=== PATIENT | female | born 1975 | race Caucasian/White ===

== ENCOUNTER 2017-03-11 18:00 | Inpatient (IN) | payer MEDICARE, MEDICAID ==
[~2017-03-11] VITALS: Ht 165.1 cm; Wt 86.9 kg
[2017-03-11 19:27] VITALS: BP 154/99
[2017-03-11 20:28] VITALS: BP 154/99
[2017-03-12 00:30] VITALS: BP 142/90
[2017-03-12] MEDS: LORazepam 2 MG TABLET PO PRN ×4 (00:38→15:55)
[2017-03-12] MEDS: ZOLPIDEM TARTRATE 10 MG TABLET PO PRN (00:38)
[2017-03-12 07:12] LABS: BASOPHILS % (AUTO) 0.8 % (0.0-2.0); EOSINOPHILS # (AUTO) 0.33 K/uL (0.00-0.70); HEMATOCRIT 43.2 % (36-46); HEMOGLOBIN 14.2 g/dL (12.0-16.0); LYMPHOCYTES # (AUTO) 1.7 K/uL (1.0-4.8); LYMPHOCYTES % (AUTO) 13.1 % (22.0-44.0); MEAN CORPUSCULAR HEMOGLOBIN 29.2 pg (26.0-34.0); MEAN CORPUSCULAR HGB CONC 32.8 G/dL (31.0-37.0); MEAN CORPUSCULAR VOLUME 89 fL (80-100); MONOCYTES # (AUTO) 0.9 K/uL (0.1-1.0); MONOCYTES % (AUTO) 7.1 % (2.0-9.0); NEUTROPHILS # (AUTO) 10.1 K/uL (1.8-7.7); NEUTROPHILS % (AUTO) 76.6 % (40.0-70.0); PLATELET COUNT (AUTO) 324 K/uL (150-450); RED BLOOD CELL COUNT(AUTO) 4.86 MIL/uL (4.00-5.20); RED CELL DISTRIBUTION WIDTH 14.4 % (11.5-14.5)
[2017-03-12 07:32] LABS: HEMOGLOBIN A1C 5.7 % (4.5-6.2)
[2017-03-12 07:44] LABS: ALANINE AMINOTRANSFERASE 15 U/L (12-78); ALKALINE PHOSPHATASE 66 U/L (46-116); ANION GAP 6 mmol/L (8-16); ASPARTATE AMINOTRANSFERASE 15 U/L (15-37); BILIRUBIN,TOTAL 0.2 mg/dL (0.1-1.0); CALCIUM, TOTAL 8.6 mg/dL (8.8-10.5); CARBON DIOXIDE 28 mmol/L (22-29); CHLORIDE 103 mmol/L (98-107); CHOL/HDL RATIO 2.9 (3.9-5.7); CHOLESTEROL 172 mg/dL (131-200); CREATININE 0.82 mg/dL (0.60-1.30); GLOMERULAR FILTR. RATE CALC > 60 mL/min (>60); GLUCOSE,RANDOM 97 mg/dL (70-110); HCG,QUANTITATIVE < 1 mIU/mL (0-6); HDL CHOLESTEROL 59 mg/dL (40-60); LDL CHOL (CALC.) 95 mg/dL (0-130); POTASSIUM 4.7 mmol/L (3.5-5.1); SODIUM SERUM 137 mmol/L (136-145); TOTAL PROTEIN, SERUM 6.5 g/dL (6.4-8.2); TRIGLYCERIDES 90 mg/dL (15-150); UREA NITROGEN, BLOOD 16 mg/dL (7-18)
[2017-03-12 08:15] VITALS: BP 148/90
[2017-03-12] MEDS: PROPRANOLOL HCL 10 MG TABLET PO SCH (08:22)
[2017-03-12] MEDS: NICOTINE 21 MG/24 HOUR PATCH TD SCH (08:22)
[2017-03-12] MEDS ORDERED: ACETAMINOPHEN 325 MG TABLET PO PRN (12:45)
[2017-03-12] MEDS: SERTRALINE HCL 50 MG TABLET PO SCH (14:37)
[2017-03-12] MEDS: ARIPiprazole 10 MG TABLET PO SCH (14:37)
[2017-03-12 17:00] VITALS: BP 160/100
[2017-03-13] MEDS: ZOLPIDEM TARTRATE 10 MG TABLET PO PRN (01:52)
[2017-03-13] MEDS: LORazepam 2 MG TABLET PO PRN ×3 (01:52→16:24)
[2017-03-13 04:29] VITALS: BP 149/111
[2017-03-13 07:55] LABS: BASOPHILS % (AUTO) 0.5 % (0.0-2.0); EOSINOPHILS % (AUTO) 2.7 % (1.0-6.0); HEMATOCRIT 44.1 % (36-46); HEMOGLOBIN 14.7 g/dL (12.0-16.0); LYMPHOCYTES # (AUTO) 1.6 K/uL (1.0-4.8); MEAN CORPUSCULAR HEMOGLOBIN 29.2 pg (26.0-34.0); MEAN CORPUSCULAR HGB CONC 33.3 G/dL (31.0-37.0); MEAN CORPUSCULAR VOLUME 88 fL (80-100); MONOCYTES # (AUTO) 0.7 K/uL (0.1-1.0); MONOCYTES % (AUTO) 6.1 % (2.0-9.0); NEUTROPHILS # (AUTO) 8.8 K/uL (1.8-7.7); NEUTROPHILS % (AUTO) 76.7 % (40.0-70.0); PLATELET COUNT (AUTO) 361 K/uL (150-450); RED BLOOD CELL COUNT(AUTO) 5.02 MIL/uL (4.00-5.20); RED CELL DISTRIBUTION WIDTH 14.7 % (11.5-14.5)
[2017-03-13 08:00] VITALS: BP 124/70
[2017-03-13 08:12] LABS: HEMOGLOBIN A1C 5.8 % (4.5-6.2)
[2017-03-13 08:27] LABS: CHOL/HDL RATIO 3.2 (3.9-5.7); THYROID STIMULATING HORMONE 1.64 uIU/mL (0.36-3.74)
[2017-03-13] MEDS: ARIPiprazole 10 MG TABLET PO SCH (08:38)
[2017-03-13] MEDS: SERTRALINE HCL 50 MG TABLET PO SCH (08:39)
[2017-03-13] MEDS: PROPRANOLOL HCL 10 MG TABLET PO SCH (08:39)
[2017-03-13] MEDS: NICOTINE 21 MG/24 HOUR PATCH TD SCH (08:45)
[2017-03-13] MEDS: HALOPERIDOL 5 MG TABLET PO PRN ×2 (11:02→16:24)
[2017-03-13 11:43] LABS: GLUCOMETER DEV NAME(LOC) 3EI B; GLUCOSE,POINT OF CARE 99 MG/DL (70-110)
[2017-03-13 17:01] VITALS: BP 148/99
[2017-03-14] MEDS: ZOLPIDEM TARTRATE 10 MG TABLET PO PRN ×2 (01:19→21:09)
[2017-03-14 01:24] VITALS: BP 125/97
[2017-03-14] MEDS: HALOPERIDOL 5 MG TABLET PO PRN (04:03)
[2017-03-14] MEDS: ARIPiprazole 10 MG TABLET PO SCH (08:27)
[2017-03-14] MEDS: PROPRANOLOL HCL 10 MG TABLET PO SCH (08:27)
[2017-03-14] MEDS: SERTRALINE HCL 50 MG TABLET PO SCH (08:27)
[2017-03-14] MEDS: LORazepam 2 MG TABLET PO PRN ×2 (08:27→16:08)
[2017-03-14 08:30] VITALS: BP 106/64
[2017-03-14] MEDS: NICOTINE 21 MG/24 HOUR PATCH TD SCH (08:30)
[2017-03-14 15:09] LABS: GLUCOMETER DEV NAME(LOC) 3EX 1; GLUCOSE,POINT OF CARE 95 MG/DL (70-110)
[2017-03-14 22:44] VITALS: BP 123/80
[2017-03-15] MEDS: LORazepam 2 MG TABLET PO PRN ×3 (02:20→14:44)
[2017-03-15] MEDS: HALOPERIDOL 5 MG TABLET PO PRN (02:20)
[2017-03-15 02:23] VITALS: BP 131/100
[2017-03-15] MEDS: NICOTINE 21 MG/24 HOUR PATCH TD SCH (08:41)
[2017-03-15] MEDS: PROPRANOLOL HCL 10 MG TABLET PO SCH (08:41)
[2017-03-15] MEDS: SERTRALINE HCL 50 MG TABLET PO SCH (08:41)
[2017-03-15] MEDS: ARIPiprazole 10 MG TABLET PO SCH (08:42)
[2017-03-15 08:55] VITALS: BP 143/78
[2017-03-15 17:00] VITALS: BP 133/72
[2017-03-15 20:54] VITALS: BP 131/87
[2017-03-15] MEDS: IBUPROFEN 400 MG TABLET PO PRN (20:54)
[2017-03-15] MEDS: ZOLPIDEM TARTRATE 10 MG TABLET PO PRN (20:56)
[2017-03-16 04:39] VITALS: BP 120/98
[2017-03-16 06:48] VITALS: BP 146/96
[2017-03-16] MEDS: LORazepam 2 MG TABLET PO PRN ×2 (06:48→13:03)
[2017-03-16 08:40] VITALS: BP 149/95
[2017-03-16] MEDS: PROPRANOLOL HCL 10 MG TABLET PO SCH (09:10)
[2017-03-16] MEDS: ARIPiprazole 10 MG TABLET PO SCH (09:11)
[2017-03-16] MEDS: NICOTINE 21 MG/24 HOUR PATCH TD SCH (09:12)
[2017-03-16] MEDS: SERTRALINE HCL 50 MG TABLET PO SCH (09:12)
[2017-03-16 16:20] VITALS: BP 129/81
[2017-03-16] MEDS: HALOPERIDOL 5 MG TABLET PO PRN (16:23)
[2017-03-16] MEDS: IBUPROFEN 400 MG TABLET PO PRN (16:25)
[2017-03-16 17:20] VITALS: BP 124/77
[2017-03-17 04:35] VITALS: BP 126/96
[2017-03-17] MEDS: LORazepam 2 MG TABLET PO PRN ×2 (05:21→12:41)
[2017-03-17 08:15] VITALS: BP 136/88
[2017-03-17] MEDS: ARIPiprazole 10 MG TABLET PO SCH (08:37)
[2017-03-17] MEDS: SERTRALINE HCL 50 MG TABLET PO SCH (08:38)
[2017-03-17] MEDS: PROPRANOLOL HCL 10 MG TABLET PO SCH (08:38)
[2017-03-17] MEDS: NICOTINE 21 MG/24 HOUR PATCH TD SCH (08:39)
[2017-03-17] MEDS ORDERED: ARIP10TA8 PO (11:31)
[2017-03-17] MEDS ORDERED: SERT50TA12 PO (11:31)
[2017-03-17] MEDS ORDERED: PROP10TA73 PO (11:32)
[2017-03-17] MEDS: HALOPERIDOL 5 MG TABLET PO PRN (12:41)
== END 2017-03-17 16:00 | disposition home or self-care (01) | DRG 885 ==
LOC: 3EX 18:00
DX: F31.63 Bipolar disorder, current episode mixed, severe, without psychotic features (principal); R45.851 Suicidal ideations; E11.9 Type 2 diabetes mellitus without complications; B19.20 Unspecified viral hepatitis C without hepatic coma; D72.829 Elevated white blood cell count, unspecified; F10.10 Alcohol abuse, uncomplicated; F17.200 Nicotine dependence, unspecified, uncomplicated; I10 Essential (primary) hypertension; M79.7 Fibromyalgia; Z91.5 Personal history of self-harm; Z71.41 Alcohol abuse counseling and surveillance of alcoholic; Z71.6 Tobacco abuse counseling; F15.90 Other stimulant use, unspecified, uncomplicated; F19.10 Other psychoactive substance abuse, uncomplicated
CPT/HCPCS: 82962; 83036; 84443; 87081

== ENCOUNTER 2017-04-22 16:23 | Inpatient (IN) | payer MEDICARE, MEDICAID ==
[~2017-04-22] VITALS: Ht 160 cm; Wt 90.4 kg
[~2017-04-22 16:23] MED LIST: ARIP10TA8 PO; PROP10TA73 PO; SERT50TA12 PO
[2017-04-22 18:18] VITALS: BP 137/87
[2017-04-22] MEDS ORDERED: LORazepam 2 MG TABLET PO PRN (18:45)
[2017-04-22] MEDS ORDERED: OLANZapine 5 MG RAPDIS TABLET PO PRN (18:45)
[2017-04-22] MEDS ORDERED: INFLUENZA VIRUS VACCINE QVS 2017-18 (3YR+)/PF 60 MCG/0.5 ML SYRINGE IM ONE (19:30)
[2017-04-22] MEDS ORDERED: PNEUMOCOCCAL VACCINE POLYVALENT 0.5 ML VIAL [PPSV23] IM ONE (19:30)
[2017-04-22] MEDS ORDERED: ACETAMINOPHEN 325 MG TABLET PO PRN (20:30)
[2017-04-22] MEDS ORDERED: OLANZapine 7.5 MG TABLET PO SCH (21:00)
[2017-04-22] MEDS: TOPIRAMATE 25 MG TABLET PO SCH (21:42)
[2017-04-22] MEDS: GABAPENTIN 300 MG CAPSULE PO SCH (21:42)
[2017-04-22 23:42] LABS: GLUCOMETER DEV NAME(LOC) BV2N3; GLUCOSE,POINT OF CARE 143 MG/DL (70-110)
[2017-04-23 06:33] VITALS: BP 125/94
[2017-04-23 08:24] VITALS: BP 110/70
[2017-04-23 08:26] LABS: HEMOGLOBIN A1C 5.1 % (4.5-6.2)
[2017-04-23] MEDS: GABAPENTIN 300 MG CAPSULE PO SCH ×3 (08:27→16:34)
[2017-04-23] MEDS: TOPIRAMATE 25 MG TABLET PO SCH ×3 (08:27→16:34)
[2017-04-23 08:30] LABS: BASOPHILS % (AUTO) 0.8 % (0.0-2.0); EOSINOPHILS % (AUTO) 7.3 % (1.0-6.0); HEMATOCRIT 43.7 % (36-46); HEMOGLOBIN 14.9 g/dL (12.0-16.0); LYMPHOCYTES # (AUTO) 2.2 K/uL (1.0-4.8); LYMPHOCYTES % (AUTO) 18.6 % (22.0-44.0); MEAN CORPUSCULAR HEMOGLOBIN 28.9 pg (26.0-34.0); MEAN CORPUSCULAR VOLUME 85 fL (80-100); MONOCYTES # (AUTO) 0.8 K/uL (0.1-1.0); MONOCYTES % (AUTO) 7.1 % (2.0-9.0); NEUTROPHILS # (AUTO) 7.9 K/uL (1.8-7.7); NEUTROPHILS % (AUTO) 66.2 % (40.0-70.0); PLATELET COUNT (AUTO) 330 K/uL (150-450); RED BLOOD CELL COUNT(AUTO) 5.15 MIL/uL (4.00-5.20); RED CELL DISTRIBUTION WIDTH 14.2 % (11.5-14.5)
[2017-04-23] MEDS ORDERED: SERTRALINE HCL 50 MG TABLET PO SCH (09:00)
[2017-04-23] MEDS ORDERED: PROPRANOLOL HCL 10 MG TABLET PO SCH (09:00)
[2017-04-23 09:31] LABS: ALANINE AMINOTRANSFERASE 23 U/L (12-78); ALBUMIN 3.2 g/dL (3.4-5.0); ALKALINE PHOSPHATASE 64 U/L (46-116); ANION GAP 4 mmol/L (8-16); ASPARTATE AMINOTRANSFERASE 15 U/L (15-37); BILIRUBIN,TOTAL 0.2 mg/dL (0.1-1.0); CARBON DIOXIDE 32 mmol/L (22-29); CHLORIDE 105 mmol/L (98-107); CHOL/HDL RATIO 3.6 (3.9-5.7); CHOLESTEROL 199 mg/dL (131-200); CREATININE 0.78 mg/dL (0.60-1.30); FREE T4 (FREE THYROXINE) 0.95 ng/dL (0.76-1.46); GLOMERULAR FILTR. RATE CALC > 60 mL/min (>60); GLUCOSE,RANDOM 94 mg/dL (70-110); HCG,QUANTITATIVE < 1 mIU/mL (0-6); HDL CHOLESTEROL 55 mg/dL (40-60); LDL CHOL (CALC.) 128 mg/dL (0-130); SODIUM SERUM 141 mmol/L (136-145); THYROID STIMULATING HORMONE 1.83 uIU/mL (0.36-3.74); TOTAL PROTEIN, SERUM 6.6 g/dL (6.4-8.2); TRIGLYCERIDES 79 mg/dL (15-150); UREA NITROGEN, BLOOD 19 mg/dL (7-18)
[2017-04-23 10:13] VITALS: BP 118/74
[2017-04-23] MEDS: IBUPROFEN 400 MG TABLET PO PRN (10:13)
[2017-04-23] MEDS: NICOTINE POLACRILEX 2 MG LOZENGE PO PRN ×2 (13:57→16:12)
[2017-04-23] MEDS ORDERED: MAGNESIUM HYDROXIDE SUSPENSION 30 ML UDCUP PO PRN (16:45)
[2017-04-23] MEDS ORDERED: GuaiFENesin/D-METHORPHAN [SUGAR-FREE] 200-20MG/10 ML SYRUP UDCUP PO PRN (16:45)
[2017-04-23] MEDS ORDERED: HydrOXYzine PAMOATE 50 MG CAPSULE PO PRN (16:45)
[2017-04-23] MEDS ORDERED: ACETAMINOPHEN 325 MG TABLET PO PRN ×2 (16:45→20:30)
[2017-04-23] MEDS ORDERED: MAG HYDROX/AL HYDROX/SIMETH ES 30 ML SUSPENSION UDCUP PO PRN (16:45)
[2017-04-23] MEDS ORDERED: LOPERAMIDE HCL 2 MG CAPSULE PO PRN (16:45)
[2017-04-23] MEDS ORDERED: PROMETHAZINE HCL 25 MG TABLET PO PRN (16:45)
[2017-04-23] MEDS ORDERED: TUBERCULIN, PURIFIED PROTEIN DERIVATIVE 5 TU/0.1 ML SYG ID ONE (16:45)
[2017-04-23] MEDS ORDERED: GABAPENTIN 400 MG CAPSULE PO SCH (17:00)
[2017-04-23] MEDS ORDERED: RisperiDONE 1 MG TABLET PO PRN (17:00)
[2017-04-23] MEDS ORDERED: RisperiDONE MICROSPHERES 50 MG/2 ML SYRINGE IM ONE (17:00)
[2017-04-23 17:33] VITALS: BP 122/84
[2017-04-23] MEDS: THIAMINE HCL 100 MG TABLET PO SCH (17:55)
[2017-04-23] MEDS ORDERED: IBUPROFEN 400 MG TABLET PO PRN (20:30)
[2017-04-23] MEDS: DIVALPROEX SODIUM 500 MG ER TABLET PO SCH (20:53)
[2017-04-23] MEDS ORDERED: RisperiDONE 3 MG TABLET PO SCH (21:00)
[2017-04-23] MEDS: ZOLPIDEM TARTRATE 10 MG TABLET PO PRN (21:28)
[2017-04-23] MEDS: GABAPENTIN 400 MG CAPSULE PO SCH (21:31)
[2017-04-24 00:07] VITALS: BP 124/91
[2017-04-24] MEDS: ClonazePAM 1 MG TABLET PO PRN ×3 (00:10→16:15)
[2017-04-24] MEDS: IBUPROFEN 400 MG TABLET PO PRN (00:13)
[2017-04-24] MEDS: NICOTINE POLACRILEX 2 MG LOZENGE PO PRN ×3 (06:30→16:00)
[2017-04-24 08:08] VITALS: BP 122/79
[2017-04-24] MEDS: NALTREXONE HCL 50 MG TABLET PO SCH (09:23)
[2017-04-24] MEDS: MULTIVITAMINS WITH MINERALS, THERAPEUTIC TABLET PO SCH (09:23)
[2017-04-24] MEDS: THIAMINE HCL 100 MG TABLET PO SCH ×2 (09:23→16:15)
[2017-04-24] MEDS: FOLIC ACID 1 MG TABLET PO SCH (09:23)
[2017-04-24] MEDS: GABAPENTIN 400 MG CAPSULE PO SCH ×4 (09:23→20:25)
[2017-04-24] MEDS ORDERED: RISP3 PO (15:20)
[2017-04-24] MEDS ORDERED: DIVA500T52 PO (15:20)
[2017-04-24] MEDS ORDERED: NALT50TA PO (15:20)
[2017-04-24] MEDS ORDERED: GABA-533 PO (15:20)
[2017-04-24] MEDS ORDERED: RISPC50 IM (15:20)
[2017-04-24 16:26] VITALS: BP 122/86
[2017-04-24] MEDS: DIVALPROEX SODIUM 500 MG ER TABLET PO SCH (20:25)
[2017-04-24] MEDS ORDERED: RisperiDONE 3 MG TABLET PO SCH (21:00)
[2017-04-24] MEDS: ZOLPIDEM TARTRATE 10 MG TABLET PO PRN (21:53)
[2017-04-25 03:29] VITALS: BP 128/81
[2017-04-25] MEDS ORDERED: DIVA500T35 PO (07:49)
[2017-04-25] MEDS ORDERED: NALT50TA6 PO (07:49)
[2017-04-25] MEDS ORDERED: RISP3 PO (07:49)
[2017-04-25] MEDS ORDERED: GABA-533 PO (07:49)
[2017-04-25] MEDS: GABAPENTIN 400 MG CAPSULE PO SCH ×2 (08:23→12:48)
[2017-04-25] MEDS: THIAMINE HCL 100 MG TABLET PO SCH (08:23)
[2017-04-25] MEDS: NALTREXONE HCL 50 MG TABLET PO SCH (08:23)
[2017-04-25] MEDS: FOLIC ACID 1 MG TABLET PO SCH (08:23)
[2017-04-25] MEDS: MULTIVITAMINS WITH MINERALS, THERAPEUTIC TABLET PO SCH (08:24)
[2017-04-25] MEDS: ClonazePAM 1 MG TABLET PO PRN (08:28)
[2017-04-25 09:19] VITALS: BP 145/90
[2017-05-07] MEDS ORDERED: RisperiDONE MICROSPHERES 50 MG/2 ML SYRINGE IM SCH (09:00)
== END 2017-04-25 13:25 | disposition home or self-care (01) | DRG 885 ==
LOC: B2S 18:47
PROVIDERS: ADMIT Psychiatry & Neurology Psychiatry; ATTEND Psychiatry & Neurology Psychiatry
DX: F25.9 Schizoaffective disorder, unspecified (principal); G62.9 Polyneuropathy, unspecified; B19.20 Unspecified viral hepatitis C without hepatic coma; D72.829 Elevated white blood cell count, unspecified; F10.10 Alcohol abuse, uncomplicated; F17.200 Nicotine dependence, unspecified, uncomplicated; H66.90 Otitis media, unspecified, unspecified ear; I10 Essential (primary) hypertension; M79.7 Fibromyalgia; Z62.810 Personal history of physical and sexual abuse in childhood; F19.10 Other psychoactive substance abuse, uncomplicated; Z71.41 Alcohol abuse counseling and surveillance of alcoholic; Z59.0 Homelessness; Z91.19 Patient's noncompliance with other medical treatment and regimen; Z71.51 Drug abuse counseling and surveillance of drug abuser; Z81.8 Family history of other mental and behavioral disorders
CPT/HCPCS: 82962; 83036; 84439; 84443; J2794

== ENCOUNTER 2017-04-30 11:00 | Emergency (ER) | payer MEDICARE, MEDICAID ==
[~2017-04-30] VITALS: Ht 167.6 cm; Wt 100.0 kg
[~2017-04-30 11:00] MED LIST changes: -ARIP10TA8 PO; +DIVA500T35 PO; +DIVA500T52 PO; +GABA-533 PO; +NALT50TA PO; +NALT50TA6 PO; -PROP10TA73 PO; +RISP3 PO; +RISPC50 IM; -SERT50TA12 PO
[2017-04-30 11:34] VITALS: BP 132/85
[2017-04-30 11:45] LABS: BASOPHILS % (AUTO) 0.8 % (0.0-2.0); EOSINOPHILS % (AUTO) 2.4 % (1.0-6.0); HEMATOCRIT 42.5 % (36-46); HEMOGLOBIN 14.1 g/dL (12.0-16.0); LYMPHOCYTES # (AUTO) 2.1 K/uL (1.0-4.8); LYMPHOCYTES % (AUTO) 15.1 % (22.0-44.0); MEAN CORPUSCULAR HGB CONC 33.1 G/dL (31.0-37.0); MEAN CORPUSCULAR VOLUME 85 fL (80-100); MONOCYTES # (AUTO) 1.2 K/uL (0.1-1.0); MONOCYTES % (AUTO) 9.1 % (2.0-9.0); NEUTROPHILS % (AUTO) 72.6 % (40.0-70.0); PLATELET COUNT (AUTO) 408 K/uL (150-450); RED BLOOD CELL COUNT(AUTO) 5.03 MIL/uL (4.00-5.20); RED CELL DISTRIBUTION WIDTH 14.1 % (11.5-14.5)
[2017-04-30 11:53] LABS: ANION GAP 11 mmol/L (8-16); CALCIUM, TOTAL 8.6 mg/dL (8.8-10.5); CARBON DIOXIDE 27 mmol/L (22-29); CHLORIDE 101 mmol/L (98-107); GLOMERULAR FILTR. RATE CALC > 60 mL/min (>60); GLUCOSE,RANDOM 85 mg/dL (70-110); POTASSIUM 3.5 mmol/L (3.5-5.1); SODIUM SERUM 139 mmol/L (136-145); UREA NITROGEN, BLOOD 13 mg/dL (7-18)
[2017-04-30 12:08] LABS: ALANINE AMINOTRANSFERASE 29 U/L (12-78); ALBUMIN 3.7 g/dL (3.4-5.0); ALKALINE PHOSPHATASE 70 U/L (46-116); ASPARTATE AMINOTRANSFERASE 21 U/L (15-37); BILIRUBIN,TOTAL 0.4 mg/dL (0.1-1.0); THYROID STIMULATING HORMONE 2.06 uIU/mL (0.36-3.74); TOTAL PROTEIN, SERUM 7.8 g/dL (6.4-8.2); VALPROIC ACID 4 mcg/mL (50-100)
[2017-04-30 12:16] LABS: AMPHET/METH SCREEN,URINE POSITIVE (NEGATIVE); BARBITURATE SCREEN, URINE NEGATIVE (NEGATIVE); BENZODIAZEPINES SCREEN,URINE NEGATIVE (NEGATIVE); CANNABINOID SCREEN,URINE POSITIVE (NEGATIVE); COCAINE SCREEN,URINE NEGATIVE (NEGATIVE); METHADONE SCREEN, URINE NEGATIVE (NEGATIVE); OPIATE SCREEN,URINE NEGATIVE (NEGATIVE)
[2017-04-30 12:27] LABS: PHENCYCLIDINE SCREEN,URINE POSITIVE (NEGATIVE)
== END 2017-04-30 12:07 | disposition left against medical advice (07) ==
LOC: EEVIPCON 11:14 → EMS 11:14
DX: F41.9 Anxiety disorder, unspecified (principal); F19.10 Other psychoactive substance abuse, uncomplicated; F17.210 Nicotine dependence, cigarettes, uncomplicated; F31.9 Bipolar disorder, unspecified; E11.9 Type 2 diabetes mellitus without complications; M79.7 Fibromyalgia; Z79.899 Other long term (current) drug therapy; Z71.6 Tobacco abuse counseling
CPT/HCPCS: 36415; 80053; 80164; 80307; 84443; 84703; 85025; 99284; 99406; G0480

== ENCOUNTER 2017-06-27 23:27 | Inpatient (IN) | payer MEDICARE, MEDICAID ==
[~2017-06-27 23:27] MED LIST changes: -DIVA500T35 PO; -NALT50TA6 PO
[2017-06-28] MEDS ORDERED: ZOLPIDEM TARTRATE 10 MG TABLET PO PRN (00:45)
[2017-06-28] MEDS ORDERED: OLANZapine 5 MG RAPDIS TABLET PO PRN (00:45)
[2017-06-28 00:47] VITALS: BP 140/97
[2017-06-28] MEDS ORDERED: PNEUMOCOCCAL VACCINE POLYVALENT 0.5 ML VIAL [PPSV23] IM ONE (01:45)
[2017-06-28 01:55] VITALS: BP 127/89
[2017-06-28 08:38] VITALS: BP 148/91
[2017-06-28] MEDS: PROPRANOLOL HCL 10 MG TABLET PO SCH (11:01)
[2017-06-28 12:06] VITALS: BP 133/89
[2017-06-28] MEDS: GABAPENTIN 400 MG CAPSULE PO SCH ×2 (12:06→17:10)
[2017-06-28 13:17] VITALS: BP 138/72
[2017-06-28] MEDS ORDERED: IBUPROFEN 400 MG TABLET PO PRN (16:30)
[2017-06-28] MEDS ORDERED: DOCUSATE SODIUM 100 MG CAPSULE PO PRN (16:30)
[2017-06-28] MEDS ORDERED: ACETAMINOPHEN 325 MG TABLET PO PRN (16:30)
[2017-06-28] MEDS: NYSTATIN 30 GM CREAM TP SCH (17:10)
[2017-06-28 17:40] VITALS: BP 135/87
[2017-06-28] MEDS: RisperiDONE 3 MG TABLET PO SCH (20:52)
[2017-06-28] MEDS: DIVALPROEX SODIUM 500 MG ER TABLET PO SCH (20:52)
[2017-06-29 08:41] VITALS: BP 136/85
[2017-06-29] MEDS: NYSTATIN 30 GM CREAM TP SCH ×2 (08:52→16:50)
[2017-06-29] MEDS: PROPRANOLOL HCL 10 MG TABLET PO SCH (08:52)
[2017-06-29] MEDS: GABAPENTIN 400 MG CAPSULE PO SCH ×3 (08:52→16:50)
[2017-06-29] MEDS ORDERED: ACETAMINOPHEN 325 MG TABLET PO PRN (09:45)
[2017-06-29 16:38] VITALS: BP 133/76
[2017-06-29] MEDS: DIVALPROEX SODIUM 500 MG ER TABLET PO SCH (20:31)
[2017-06-29] MEDS: RisperiDONE 3 MG TABLET PO SCH (20:31)
[2017-06-29 21:47] VITALS: BP 101/60
[2017-06-30 08:24] LABS: BASOPHILS % (AUTO) 0.5 % (0.0-2.0); EOSINOPHILS % (AUTO) 1.9 % (1.0-6.0); HEMATOCRIT 40.1 % (36-46); HEMOGLOBIN 13.7 g/dL (12.0-16.0); LYMPHOCYTES % (AUTO) 12.1 % (22.0-44.0); MEAN CORPUSCULAR HEMOGLOBIN 28.7 pg (26.0-34.0); MEAN CORPUSCULAR HGB CONC 34.3 G/dL (31.0-37.0); MEAN CORPUSCULAR VOLUME 84 fL (80-100); MONOCYTES # (AUTO) 1.3 K/uL (0.1-1.0); MONOCYTES % (AUTO) 7.7 % (2.0-9.0); NEUTROPHILS # (AUTO) 13.2 K/uL (1.8-7.7); NEUTROPHILS % (AUTO) 77.8 % (40.0-70.0); PLATELET COUNT (AUTO) 350 K/uL (150-450); RED BLOOD CELL COUNT(AUTO) 4.79 MIL/uL (4.00-5.20)
[2017-06-30 08:49] LABS: ALANINE AMINOTRANSFERASE 18 U/L (12-78); ALBUMIN 2.7 g/dL (3.4-5.0); ALKALINE PHOSPHATASE 68 U/L (46-116); ANION GAP 8 mmol/L (8-16); ASPARTATE AMINOTRANSFERASE 12 U/L (15-37); BILIRUBIN,TOTAL 0.3 mg/dL (0.1-1.0); CALCIUM, TOTAL 8.5 mg/dL (8.8-10.5); CARBON DIOXIDE 28 mmol/L (22-29); CHLORIDE 103 mmol/L (98-107); CHOL/HDL RATIO 3.3 (3.9-5.7); CHOLESTEROL 169 mg/dL (131-200); CREATININE 0.75 mg/dL (0.60-1.30); FREE T4 (FREE THYROXINE) 0.93 ng/dL (0.76-1.46); GLOMERULAR FILTR. RATE CALC > 60 mL/min (>60); GLUCOSE,RANDOM 118 mg/dL (70-110); HCG,QUANTITATIVE < 1 mIU/mL (0-6); HDL CHOLESTEROL 51 mg/dL (40-60); LDL CHOL (CALC.) 96 mg/dL (0-130); POTASSIUM 3.7 mmol/L (3.5-5.1); SODIUM SERUM 139 mmol/L (136-145); THYROID STIMULATING HORMONE 1.69 uIU/mL (0.36-3.74); TOTAL PROTEIN, SERUM 6.7 g/dL (6.4-8.2); TRIGLYCERIDES 110 mg/dL (15-150); UREA NITROGEN, BLOOD 15 mg/dL (7-18)
[2017-06-30] MEDS: NYSTATIN 30 GM CREAM TP SCH ×2 (09:00→17:00)
[2017-06-30] MEDS: LORazepam 2 MG TABLET PO PRN (10:25)
[2017-06-30] MEDS: PROPRANOLOL HCL 10 MG TABLET PO SCH (10:25)
[2017-06-30] MEDS: GABAPENTIN 400 MG CAPSULE PO SCH ×3 (10:25→17:34)
[2017-06-30] MEDS: NICOTINE 21 MG/24 HOUR PATCH TD SCH (10:38)
[2017-06-30 16:30] VITALS: BP 131/84
[2017-06-30] MEDS: DIVALPROEX SODIUM 500 MG ER TABLET PO SCH (21:47)
[2017-06-30] MEDS: RisperiDONE 3 MG TABLET PO SCH (21:47)
[2017-07-01 08:22] VITALS: BP 131/85
[2017-07-01 08:55] LABS: AMPHET/METH SCREEN,URINE NEGATIVE (NEGATIVE); BARBITURATE SCREEN, URINE NEGATIVE (NEGATIVE); BENZODIAZEPINES SCREEN,URINE NEGATIVE (NEGATIVE); CANNABINOID SCREEN,URINE POSITIVE (NEGATIVE); COCAINE SCREEN,URINE NEGATIVE (NEGATIVE); METHADONE SCREEN, URINE NEGATIVE (NEGATIVE); OPIATE SCREEN,URINE NEGATIVE (NEGATIVE)
[2017-07-01 08:57] LABS: PHENCYCLIDINE SCREEN,URINE NEGATIVE (NEGATIVE)
[2017-07-01 09:02] LABS: APPEARANCE,URINE CLOUDY (CLEAR); BILIRUBIN,URINE NEGATIVE (NEGATIVE); GLUCOSE, URINE (UA) NEGATIVE (NEGATIVE); KETONES,URINE TRACE mg/dL (NEGATIVE); LEUKOCYTE ESTERASE ,URINE NEGATIVE (NEGATIVE); NITRATE,URINE NEGATIVE (NEGATIVE); OCCULT BLOOD,URINE LARGE (NEGATIVE); PH,URINE 6.5 (5.0-8.0); PROTEIN,URINE TRACE (NEGATIVE); UROBILINOGEN,URINE 0.2 mg/dL (<=1.0)
[2017-07-01] MEDS: NICOTINE 21 MG/24 HOUR PATCH TD SCH (09:15)
[2017-07-01] MEDS: NYSTATIN 30 GM CREAM TP SCH (09:15)
[2017-07-01] MEDS: PROPRANOLOL HCL 10 MG TABLET PO SCH (09:15)
[2017-07-01] MEDS: GABAPENTIN 400 MG CAPSULE PO SCH ×2 (09:15→12:16)
[2017-07-01] MEDS: LORazepam 2 MG TABLET PO PRN (09:22)
[2017-07-01 09:39] LABS: BACTERIA,URINE None Seen /HPF (None Seen); RBC,URINE 51-100 /HPF (0-2); SQUAMOUS EPITHELIAL CELL,UR Moderate /LPF (None Seen); WBC,URINE None Seen /HPF (0-5)
[2017-07-01] MEDS ORDERED: GABA-533 PO (11:53)
[2017-07-01] MEDS ORDERED: PROP10TA73 PO (11:54)
== END 2017-07-01 13:00 | disposition home or self-care (01) | DRG 885 ==
LOC: B2S 06-28 00:49 → B2X 06-28 21:15 → B3A 06-29 21:45
DX: F25.1 Schizoaffective disorder, depressive type (principal); R45.851 Suicidal ideations; E11.9 Type 2 diabetes mellitus without complications; B18.2 Chronic viral hepatitis C; D72.829 Elevated white blood cell count, unspecified; F10.10 Alcohol abuse, uncomplicated; I10 Essential (primary) hypertension; M79.7 Fibromyalgia; F19.10 Other psychoactive substance abuse, uncomplicated; F17.200 Nicotine dependence, unspecified, uncomplicated; Z59.0 Homelessness; Z71.51 Drug abuse counseling and surveillance of drug abuser; Z71.41 Alcohol abuse counseling and surveillance of alcoholic; Z71.6 Tobacco abuse counseling
CPT/HCPCS: 80307; 83036; 84439; 84443